=== PATIENT | male | born 1985 | race Hispanic/Latino ===

== ENCOUNTER 2024-10-31 16:56 | Emergency (ER) | payer SELFPAY ==
[2024-10-31 17:00] VITALS: BP 139/86
[2024-10-31 17:23] LABS: % Basophils 0.2 % (0-2); % Eosinophils 0.2 % (0-6); % Immature Granulocytes 0.6 % (0-0.5); % Lymphocytes 14.5 % (20.5-51.1); % Monocytes 12.9 % (1.7-9.3); % Neutrophils 71.6 % (42.2-75.2); Absolute Immature Granulocytes 0.1 10^3/uL (0-0.05); Absolute Lymphocytes 1.4 10^3/uL (1.2-3.4); Absolute Monocytes 1.2 10^3/uL (0.1-0.6); Absolute Neutrophils 6.7 10^3/uL (1.4-6.5); Hematocrit 36.4 % (39.0-52.0); Hemoglobin 12.4 g/dL (13.0-18.0); Mean Corp Hgb Conc. 34.1 g/dL (33.0-37.0); Mean Corpuscular Hgb 29.7 pg (27.0-31.0); Mean Corpuscular Volume 87.1 fL (80.0-94.0); Mean Platelet Volume 10.1 fL (7.4-10.4); Nucleated Red Blood Cells % 0 % (-); Platelet Count 239 10^3/uL (130-400); Red Blood Cell Count 4.18 10^6/uL (4.70-6.10); Red Cell Dist. Width 12.8 % (11.5-14.5); White Blood Cell Count 9.4 10^3/uL (4.8-10.8)
[2024-10-31 17:41] LABS: ALT (SGPT) 79 U/L (0-50); AST (SGOT) 54 U/L (17-59); Alkaline Phosphatase 215 U/L (38-126); Blood Urea Nitrogen 11 mg/dl (9-20); Carbon Dioxide 25 mmol/L (22-30); Chloride 107 mmol/L (98-107); Glucose 120 mg/dl (70-99); Potassium 3.4 mmol/L (3.5-5.1); Sodium 139 mmol/L (135-145); Total Bilirubin 0.8 mg/dl (0.2-1.3); Total Protein 7.7 g/dl (6.3-8.2); eGFR > 60.00
[2024-10-31 17:47] LABS: Troponin I < 0.012 ng/ml
[2024-10-31 17:51] LABS: COVID-19 Antigen Negative (Negative)
--- NOTE | 2024-10-31 19:58 | ED.GENMED ---
History of Present Illness
General
Chief Complaint: Breathing Problem
Source: patient
Exam Limitations: none
Time Seen by Provider: 10/31/24 20:18
Nursing documentation reviewed up to this point in time: agreed with
History of Present Illness
History of Present Illness:
The patient is a very pleasant Occitan-speaking 39-year-old male who arrives with complaints of 4 days of cough, chills, generalized weakness and posttussive vomiting. Patient denies diarrhea. He denies sick contacts. He reports subjective fever.
Patient reports he feels slightly short of breath. He denies history of PE and DVT. He is here with a family or friend that is translating for him. He reports a mild headache but denies sore throat and rash
Past History
Past History
ED Past Medical History: None
ED Past Surgical History: None
Social History
Tobacco: Non-smoker
Alcohol: Other
Drug: None
Personal: Other
Living: with family
Employment: Employed
Family History
Family History: Other
Review of Systems
Review of Systems
Allergies reviewed?: Yes
Other source history: other (Family or friend is at the bedside translating)
All Other Systems: ROS reviewed and negative except as documented in HPI and ROS
Constitutional: Reports fever, fatigue and chills
EENT: Reports no symptoms
Respiratory: Reports cough and trouble breathing
Cardiac: Reports chest pain
ABD/GI: Reports other (Posttussive vomiting)
: Reports no symptoms
Musculoskeletal: Reports no symptoms
Skin: Reports no symptoms
Neurological: Reports headache
Endocrine: Reports no symptoms
Hematologic/Lymphatic: Reports no symptoms
Psychiatric: Reports no symptoms
Phy Exam
Physical Exam
Physical Exam:
Physical Exam
General: Patient appears nontoxic. Appears flushed but conversational and smiling
Neck: supple. no meningeal signs. normal psoterior pharynx
Heart: s1/s2 regular rate and rhythm, no murmur. equal radial pulses.
Lungs: no acute respiratory distress. clear bilaterally
Abdomen: normal bowel sounds. not tender. no CVAT
Neuro: alert and oriented. no focal neurological deficits
Skin: no rash
Psychiatric: well kept. interactive and cooperative
Extremities: no edema. no calf tenderness. negative homans. good distal pulses
Course
Orders/Labs/Results
Orders:
Orders
10/31/24 17:03
Electrocardiogram (*1) Urgent
Reason for Study: Chest Pain
EKG- Treatment ONCE
10/31/24 17:14
COVID-19 Antigen Urgent
Source: Nasal Swab
Complete Blood Count/With Diff Urgent
Comprehensive Metabolic Panel Urgent
Troponin I Urgent
Influenza A+B Rapid Molecular Urgent
GENNA Source: Nasal Swab
Specimen Description:
10/31/24 19:32
CR Chest - 2 Views Urgent
Comment:
Reason For Exam: cough
10/31/24 21:50
Doxycycline [Vibramycin] 100 mg PO NOW STA
Abnormal Lab Results
10/31/24
17:14
RBC 4.18 L 10^6/uL
(4.70-6.10)
Hgb 12.4 L g/dL
(13.0-18.0)
Hct 36.4 L %
(39.0-52.0)
Abs Immat Gran (auto) 0.1 H 10^3/uL
(0-0.05)
Absolute Neuts (auto) 6.7 H 10^3/uL
(1.4-6.5)
Absolute Monos (auto) 1.2 H 10^3/uL
(0.1-0.6)
Immature Gran % 0.6 H %
(0-0.5)
Lymphocytes % 14.5 L %
(20.5-51.1)
Monocytes % 12.9 H %
(1.7-9.3)
Potassium 3.4 L mmol/L
(3.5-5.1)
Glucose 120 H mg/dl
(70-99)
ALT 79 H U/L
(0-50)
Alkaline Phosphatase 215 H U/L
(38-126)
10/31/24 17:14
10/31/24 17:14
Vital Signs
Initial and Last Documented VS:
Initial Vital Signs
Temp Pulse Resp BP Pulse Ox
100 F 113 18 139/86 100
10/31/24 17:00 10/31/24 17:00 10/31/24 17:00 10/31/24 17:00 10/31/24 17:00
Last Documented Vital Signs
Temp Pulse Resp BP Pulse Ox
100 F 104 17 139/86 99
10/31/24 17:00 10/31/24 20:30 10/31/24 20:30 10/31/24 17:00 10/31/24 20:30
MDM/Problems Addressed
Differential Diagnosis Includes:
Acute viral illness, pneumonia, PE
MDM/Problems Addressed:
Patient presents with acute chest pain, shortness of breath, cough and chills
Acute Exacerbation and/or Progression of Chronic Illness:
Patient is acutely hypertensive, likely due to not feeling well
Acute Exacerbation and/or Progression of Chronic Illness: HTN
*Radiology
Radiology exam reviewed: preliminary read by ED provider (Chest x-ray reviewed by me. Possible right-sided pneumonia) and radiology read reviewed
*Pulse Oximetry
Patient hypoxic: no
*EKG
Interpreted by ED Provider?: Yes
Interpretation: abnormal
Comparison EKG: no comparison EKG present
Rate: tachycardiac
Rhythm: sinus
[place]: normal axis
Interval: normal interval
QRS Pattern: normal QRS
Ischemia: no ischemia
*Notched Blade Loader Interpretation
Rate: tachycardiac
Interpretation: normal
Rhythm: sinus
*Critical Care Note
Total Time (30-74mins, 75-104mins- exclusive of procedures): Not Applicable
Data Reviewed
Source: patient and other (Friend at bedside translating)
Patient Management
Social determinants of health affecting care: Living situation and Strong social support
Escalation/DeEscalation of care consider admission/obs:
Patient appears nontoxic and comfortable. He is breathing comfortably. He is able to keep down fluids so
ED Attending Note
-
Portions of this chart may have been created with voice recognition software.� Occasional wrong word or��sound alike� substitutions may have occurred due to the inherent limitations of voice recognition software.
Discharge Plan
Departure
Patient Disposition: Home (Routine Discharge)
Date of Disposition: 10/31/24
Time of Disposition: 21:50
Patient with high blood pressure during this ER visit?: Yes
Condition: Good
Covid-19: Not Applicable
Discharge Problem:
Pneumonia
Instructions: Community-acquired pneumonia in adults, BLOOD PRESSURE
Prescriptions:
New
doxycycline monohydrate 100 mg capsule
100 mg PO BID Qty: 13 0RF
Referrals:
UNKNOWN - PT DOES,NOT KNOW [Family Provider]
Interventions
Interventions:
*Risk Screen - Suicide Last Done: 10/31/24 17:03
*General Assessment Last Done: 10/31/24 20:20
*Neglect/Abuse Screening Last Done: 10/31/24 17:03
*ED- Fall Risk Assessment Last Done: 10/31/24 20:20
*ED COVID-19 Vaccine History Last Done: 10/31/24 20:20
ED- Cardiac Assessment Last Done: 10/31/24 20:20
ED- Pulmonary Assessment Last Done: 10/31/24 20:20
Discharge Date and Time
Print Language: CHINESE
[2024-10-31 20:19] VITALS: BMI 20.8
[2024-10-31] MEDS: VIBRAMYCIN 100 MG PO (21:55)
[2024-10-31] MEDS: TYLENOL 1000 MG PO (22:04)
== END 2024-10-31 22:06 | disposition home or self-care (01) ==
LOC: EMR 16:56
PROVIDERS: Emergency Medicine; EMERGENCY PHYSICIAN Emergency Medicine
DX: J18.9 Pneumonia, unspecified organism (principal); Z11.52 Encounter for screening for COVID-19; R03.0 Elevated blood-pressure reading, without diagnosis of hypertension
CPT/HCPCS: 99285; 71046; 80053; 84484; 85025; 87502; 87811; 93005